=== PATIENT | female | born 1950 | race Caucasian/White ===

== ENCOUNTER 2023-04-11 05:53 | Outpatient (REF) | payer OTHER, SELFPAY ==
[2023-04-11 05:58] LABS: MANUAL DIFF FLAG NO
[2023-04-11 06:32] LABS: Basophils Absolute Auto 0.1 X10*3/uL (0.0-0.2); Basophils Percent Auto 0.7 % (0-2); Eosinophils Absolute Auto 0.4 X10*3/uL (0.0-0.4); Eosinophils Percent Auto 3.9 % (0-4); Hematocrit 36.4 % (37.0-47.0); Hemoglobin 11.9 g/dl (12.0-16.0); Imm Gran Abs Auto 0.04 X10*3/uL (0.00-0.03); Imm Gran Pct Auto 0.4 % (0.0-0.4); Lymphocytes Absolute Auto 2.2 X10*3/uL (1.2-4.9); Lymphocytes Percent Auto 22.7 % (20-40); Mean Corpuscular HGB Conc 32.7 g/dl (31.0-35.0); Mean Corpuscular Hemoglobin 29.5 pg (27.0-33.0); Mean Corpuscular Volume 90.3 fL (80.0-98.0); Mean Platelet Volume 11.1 fL (9.4-12.3); Monocytes Percent Auto 9.9 % (2-11); Neutrophils Absolute Auto 6.1 x10*3/uL (2.0-8.3); Neutrophils Percent Auto 62.4 % (45-73); Platelet Count 282 X10*3/uL (160-400); Red Blood Count 4.03 X10*6/uL (4.20-5.50); Red Cell Distribution Width 13.2 % (11.0-16.0); White Blood Count 9.8 X10*3/uL (4.8-10.8)
[2023-04-11 06:47] LABS: Alanine Aminotransferase 7 U/L (0-31); Albumin Level 2.9 g/dL (3.5-5.0); Alkaline Phosphatase 66 U/L (39-117); Anion Gap 10 (12-20); Aspartate Amino Transferase 11 U/L (5-31); Bilirubin Total 0.6 mg/dL (0.0-1.0); Blood Urea Nitrogen 11 mg/dL (9-16); Calcium 8.8 mg/dL (8.4-10.2); Carbon Dioxide 26 mmol/L (22-29); Chloride 110 mmol/L (96-108); Estimated Glomerular Filt Rate > 60; Glucose Random 72 mg/dL (60-115); Potassium 3.8 mmol/L (3.3-5.1); Sodium 142 mmol/L (135-145); Total Protein 5.3 g/dL (6.5-8.0)
== END 2023-04-11 05:54 | disposition home or self-care (01) ==
LOC: HO.MMNH1L 05:53
PROVIDERS: Visit Provider Family Medicine
DX: Z96.649 Presence of unspecified artificial hip joint (principal); Z98.890 Other specified postprocedural states
CPT/HCPCS: 36415; 80053; 85025

== ENCOUNTER 2023-04-14 06:34 | Outpatient (REF) | payer OTHER, SELFPAY ==
[2023-04-14 06:12] LABS: MANUAL DIFF FLAG NO
[2023-04-14 07:05] LABS: Basophils Absolute Auto 0.1 X10*3/uL (0.0-0.2); Basophils Percent Auto 0.4 % (0-2); Eosinophils Absolute Auto 0.1 X10*3/uL (0.0-0.4); Eosinophils Percent Auto 0.7 % (0-4); Hematocrit 41.5 % (37.0-47.0); Hemoglobin 13.6 g/dl (12.0-16.0); Imm Gran Abs Auto 0.13 X10*3/uL (0.00-0.03); Imm Gran Pct Auto 0.7 % (0.0-0.4); Lymphocytes Absolute Auto 1.2 X10*3/uL (1.2-4.9); Lymphocytes Percent Auto 5.9 % (20-40); Mean Corpuscular HGB Conc 32.8 g/dl (31.0-35.0); Mean Corpuscular Hemoglobin 28.8 pg (27.0-33.0); Mean Corpuscular Volume 87.9 fL (80.0-98.0); Mean Platelet Volume 9.8 fL (9.4-12.3); Monocytes Absolute Auto 1.1 X10*3/uL (0.1-1.2); Monocytes Percent Auto 5.9 % (2-11); Neutrophils Absolute Auto 16.8 x10*3/uL (2.0-8.3); Neutrophils Percent Auto 86.4 % (45-73); Platelet Count 357 X10*3/uL (160-400); Red Blood Count 4.72 X10*6/uL (4.20-5.50); Red Cell Distribution Width 12.8 % (11.0-16.0); White Blood Count 19.4 X10*3/uL (4.8-10.8)
[2023-04-14 07:21] LABS: Anion Gap 13 (12-20); Blood Urea Nitrogen 14 mg/dL (9-16); Calcium 8.8 mg/dL (8.4-10.2); Carbon Dioxide 22 mmol/L (22-29); Chloride 107 mmol/L (96-108); Estimated Glomerular Filt Rate > 60; Glucose Random 79 mg/dL (60-115); Potassium 3.4 mmol/L (3.3-5.1); Sodium 139 mmol/L (135-145)
== END 2023-04-14 06:35 | disposition home or self-care (01) ==
LOC: HO.MMNH1L 06:34
PROVIDERS: Visit Provider Family Medicine
DX: Z98.890 Other specified postprocedural states (principal); Z96.649 Presence of unspecified artificial hip joint
CPT/HCPCS: 36415; 80048; 85025

== ENCOUNTER 2023-04-15 05:44 | Outpatient (REF) | payer OTHER, SELFPAY ==
[2023-04-15 05:46] LABS: MANUAL DIFF FLAG NO
[2023-04-15 06:08] LABS: Basophils Absolute Auto 0.1 X10*3/uL (0.0-0.2); Basophils Percent Auto 0.6 % (0-2); Eosinophils Absolute Auto 0.4 X10*3/uL (0.0-0.4); Eosinophils Percent Auto 2.1 % (0-4); Hematocrit 38.8 % (37.0-47.0); Hemoglobin 12.7 g/dl (12.0-16.0); Imm Gran Abs Auto 0.18 X10*3/uL (0.00-0.03); Lymphocytes Percent Auto 11.6 % (20-40); Mean Corpuscular HGB Conc 32.7 g/dl (31.0-35.0); Mean Corpuscular Hemoglobin 29.2 pg (27.0-33.0); Mean Corpuscular Volume 89.2 fL (80.0-98.0); Mean Platelet Volume 9.8 fL (9.4-12.3); Monocytes Absolute Auto 1.5 X10*3/uL (0.1-1.2); Monocytes Percent Auto 8.4 % (2-11); Neutrophils Absolute Auto 13.2 x10*3/uL (2.0-8.3); Neutrophils Percent Auto 76.3 % (45-73); Platelet Count 346 X10*3/uL (160-400); Red Blood Count 4.35 X10*6/uL (4.20-5.50); Red Cell Distribution Width 12.8 % (11.0-16.0); White Blood Count 17.3 X10*3/uL (4.8-10.8)
== END 2023-04-15 05:45 | disposition home or self-care (01) ==
LOC: HO.MMNH1L 05:44
PROVIDERS: Visit Provider Family Medicine
DX: K21.9 Gastro-esophageal reflux disease without esophagitis (principal); K44.9 Diaphragmatic hernia without obstruction or gangrene; M19.90 Unspecified osteoarthritis, unspecified site
CPT/HCPCS: 36415; 85025

== ENCOUNTER 2023-04-16 05:53 | Outpatient (REF) | payer OTHER, SELFPAY ==
[2023-04-16 07:09] LABS: CDiff Gene PCR POSITIVE (Negative)
[2023-04-16 08:52] LABS: CDiff Toxin Positive (Negative)
[2023-04-16 08:53] LABS: CDIFF Internal ctrl Dots and bkg OK (V)
== END 2023-04-16 05:54 | disposition home or self-care (01) ==
LOC: HO.MMNH1L 05:53
PROVIDERS: Visit Provider Family Medicine
DX: M62.59 Muscle wasting and atrophy, not elsewhere classified, multiple sites (principal); E46 Unspecified protein-calorie malnutrition; E78.5 Hyperlipidemia, unspecified
CPT/HCPCS: 87324; 87493

== ENCOUNTER 2023-04-17 09:12 | Outpatient (REF) | payer OTHER, SELFPAY | END 2023-04-17 09:13 | disposition home or self-care (01) | LOC: HO.MMNH1L 09:12 | PROVIDERS: Visit Provider Family Medicine | DX: Z13.89 Encounter for screening for other disorder (principal) ==